=== PATIENT | male | born 1950 | race Caucasian/White ===

== ENCOUNTER → 2019-11-25 09:19 | Outpatient (CLI) | payer BC, SELFPAY ==
--- NOTE | 2019-11-25 09:30 | DI.MRI.S_ITS ---
PROCEDURE: MR SHOULDER RT WO CON INDICATIONS: Pain in right shoulder TECHNIQUE: Noncontrast oblique coronal T2 fast spin echo with fat saturation, oblique sagittal T1 spin echo and T2 fast spin echo with fat saturation, axial T1 spin echo and T2 fast spin echo with fat saturation through the shoulder. COMPARISON: None. FINDINGS: Image quality: Excellent. Rotator cuff: There is a focal full-thickness tear within the mid supraspinatus tendon at the humeral insertion measuring roughly 14 mm anteroposterior. Low-grade partial-thickness articular surface tearing of the anterior, mid, and posterior infraspinatus tendon at the musculotendinous junction. Subscapularis and teres minor tendons are intact. No rotator cuff atrophy. Bones and bursae: No bone marrow contusions or fractures. Moderate acromioclavicular joint degeneration. The acromion demonstrates conventional anatomy, without an os acromiale. No pathologic subacromial-subdeltoid or subcoracoid bursal fluid is present. Capsule and soft tissues: Small paralabral cyst is present posterosuperior Mansi, possibly indicating tearing.. The long head of the biceps tendon demonstrates normal location and morphology. The rotator interval appears normal, without fibrosis. The coracohumeral ligament is normal in thickness. IMPRESSION: 1. Full-thickness tearing of the supraspinatus tendon as described above. 2. Low-grade partial-thickness articular surface tearing of the infraspinatus tendon. 3. Acromioclavicular joint osteoarthritis. 4. Possible posterosuperior glenoid labral tearing. Dictated by: Esther Cooper M.D. on 11/25/2019 at 11:45 Approved by: Esther Cooper M.D. on 11/25/2019 at 11:47
== END ==
PROVIDERS: Referring Provider Physician Assistant Medical; Visit Provider Physician Assistant Medical
DX: M25.511 Pain in right shoulder (principal); M75.121 Complete rotator cuff tear or rupture of right shoulder, not specified as traumatic; M19.011 Primary osteoarthritis, right shoulder
CPT/HCPCS: 73221

== ENCOUNTER 2019-12-29 09:22 | Day surgery (SDC) | payer BC, SELFPAY ==
[2019-12-26 08:35] VITALS: BMI 23.7
[2019-12-29] VITALS (9 sets, daily range): BP systolic 127–158; BP diastolic 73–83; PULSE 56–85; RESP 8–18; TEMP 36.4–36.6; O2SAT 92–98; BMI 22.5
[2019-12-29] MEDS: LACTATED RINGERS 1,000 ML 42 ML IV (11:28)
--- NOTE | 2019-12-29 12:21 | PM.PREOP ---
Pre-operative Note COVID-19 COVID-19 status: Negative Result date/Date tested (Pos, Neg/Pending): 12/26/19 Interval Note History & Physical reviewed/Exam performed by Physician: Yes Changes to H&P: No
[2019-12-29] MEDS: fentaNYL 100 MCG/2 ML INJ 50 MCG IV ×2 (12:35→12:37)
[2019-12-29] MEDS: MIDAZOLAM 2 MG/2 ML VIAL IV (12:36)
[2019-12-29] MEDS: CEFAZOLIN 2 GM/100 ML FROZ.PIGGY IV (12:55)
--- NOTE | 2019-12-29 12:56 | SUR.PREOP ---
Block start time [1335] . Monitoring initiated and maintained throughout procedure. Oxygen and medications given per anesthesiologist instructions. Patient remained stable throughout procedure, no adverse reactions noted. Block end time [1340 ].
--- NOTE | 2019-12-29 12:59 | SUR.PREOP ---
Block start time [1235] . Monitoring initiated and maintained throughout procedure. Oxygen and medications given per anesthesiologist instructions. Patient remained stable throughout procedure, no adverse reactions noted. Block end time [1240].
[2019-12-29] MEDS: BUPIVACAINE 0.5% W/ EPI (PF) 30 ML VIAL INJ (13:34)
--- NOTE | 2019-12-29 13:51 | SUR.OPER ---
Beach chair with Maquet shoulder positioner. Lower body on padded OR bed. Head in foam padded head cradle, secured with straps. Non-operative arm secured <90 degrees abduction. Pillow under knees. Safety belt at thigh. Cloth tape over blanket over lower legs.
[2019-12-29] MEDS: SODIUM CHLORIDE IRRIG SOLUTION 3,000 ML, EPINEPHrine 1 MG IRR (13:54)
--- NOTE | 2019-12-29 14:26 | PM.OP.1 ---
Operative Date/Time/Diagnoses Date of procedure: 12/29/19 Time of procedure: 13:00 Pre-op diagnosis: Right rotator cuff tear Post-op diagnosis: same Procedure & Clinicians Procedure: Right rotator cuff repair with subacromial decompression and debridement of the glenohumeral joint Same procedure as scheduled: Yes Indications: Tear to the rotator cuff Surgeon: Hernan [facility] [employer] Subcontractor: Tricia Capellan Click Yes if Unassisted: No Anesthesia Type: General and Peripheral nerve block Operative Notes Findings: Small full-thickness tear involving the supraspinatus. Little to no retraction. No sign of any significant arthritic changes to the glenohumeral joint. Some mild degenerative changes to the labrum with a type 1 SLAP tear. No sign of any instability or tearing to the biceps tendon or bicipital anchor. No Bankart tear or loose bodies. Closure Type: primary Specimen(s): none sent Applied: implant(s) (Single lateral Arthrex anchor) Estimated Blood Loss (mL): 10 Blood products transfused: none Procedure in detail: On date of service, Patient was met in the holding area. The operative site was signed and witnessed by the OR staff. The surgeries once again discussed with the patient and any remaining questions they had were answered fully. Patient was taken back to the operating theater and placed on the operating table in a supine position. Great care was taken to ensure that all bony prominences were properly padded. Patient was then placed into the beach chair position. The head and neck were properly positioned and secured. A timeout was performed verifying patient's name, procedure, and the operative site. The upper extremity was then prepped and draped in the normal sterile fashion. Previously, the bony anatomy and portal sites were marked out as well as injected with Marcaine with epinephrine. An 11 blade was used to make an incision in the posterior aspect of the shoulder. The camera was placed, and a diagnostic shoulder scope was performed. Findings listed above. Next under direct visualization, a anterior portal was made. Shaver was used to debride the glenohumeral joint particularly the degenerative changes to the labrum. Patient had some high-grade tearing and a small full-thickness tear in the supraspinatus. This was also debrided from the glenohumeral joint. Next the camera was placed into the subacromial space. A lateral portal was obtained under direct visualization. A combination of the shaver and vapor wand, a debridement of the inflamed tissue as well as inflamed bursa was performed. The lateral gutter was also cleaned out. This gave us good visualization of the bursal aspect of the rotator cuff as well as the acromial arch. There was an obvious impingement lesion in the acromial arch. Next we turned our attention to the subacromial decompression. Next, a mechanical rasp was then used to do a subacromial decompression. This allowed us to convert the acromion to a type I acromial. This also allowed us to shave down the bony lesion in the acromial space. The rasp was placed into the lateral portal as well as the anterior portal in order to do a complete subacromial decompression. We next turned our attention to the distal clavicle. Using the shaver in the vapor wand we were able to clean out all the soft tissue around the distal clavicle as well as into the a.c. joint. This gave us good visualization of the arthritic changes to the distal clavicle as well as good of the a.c. joint allowing us to assess our distal clavicle excision. Of the inferior osteophytes coming off the distal clavicle. Using the mechanical rasp in the anterior portal, we were able to remove the inferior osteophytes as well as do a distal clavicle excision. The camera was then placed into the anterior portal which gave us a direct visualization of the a.c. joint allowing us to assess the distal clavicle excision. We then turned our attention to the rotator cuff tear. As mentioned above, patient had a small tear to the supraspinatus. The area of high-grade tearing was completed to a full-thickness tear. Four sutures were placed into the tear in a horizontal mattress fashion. These limbs were then placed into a lateral anchor and tenodesed into the greater tuberosity providing a secure repair of the rotator cuff tear. Shoulder was taken through range of motion no sign of any impingement lesions no sign of any additional tearing. Complications: none Post-operative Condition: stable Disposition: PACU Plan for aftercare: Patient will follow our postoperative protocol for rotator cuff repair
[2019-12-29] MEDS: MEPERIDINE 50 MG/ML INJ 12.5 MG IV (14:52)
== END 2019-12-29 15:55 | disposition home or self-care (01) ==
PROVIDERS: PCP Family Medicine; Referring Provider Orthopaedic Surgery; Visit Provider Orthopaedic Surgery
PROC: (CPT 29827; principal; 2019-12-29 12:15)
DX: S46.011A Strain of muscle(s) and tendon(s) of the rotator cuff of right shoulder, initial encounter (principal); S43.431A Superior glenoid labrum lesion of right shoulder, initial encounter; M75.41 Impingement syndrome of right shoulder; M19.011 Primary osteoarthritis, right shoulder; X50.0XXA Overexertion from strenuous movement or load, initial encounter; E78.5 Hyperlipidemia, unspecified; F17.210 Nicotine dependence, cigarettes, uncomplicated
CPT/HCPCS: 29827; 29826; 29823; 29824; 64450; J0171; J0690; J2175; J2250; J3010

== ENCOUNTER 2023-11-26 07:11 | Day surgery (SDC) | payer MEDICARE, BC, SELFPAY ==
[2023-11-26 07:36] VITALS: BP 144/78; PULSE 69; RESP 16; TEMP 36.3; O2SAT 99
[2023-11-26] MEDS: LACTATED RINGERS 1,000 ML 100 ML IV (07:53)
--- NOTE | 2023-11-26 08:06 | PM.HP.1 ---
History of Present Illness History of Present Illness Date Patient Seen: 11/26/23 Time Patient Seen: 08:06 Chief complaint: Screening Colonoscopy Narrative: Emanuel is a 73-year-old man who presents for a colonoscopy. His last one was over 10 years ago and was normal. He has never had polyps removed. No family history of colon cancer. [facility] Medical History (Updated 11/26/23 @ 08:07 by Levy Angela MD) Tear of right glenoid labrum Arthritis of right acromioclavicular joint Traumatic complete tear of right rotator cuff Impingement syndrome of right shoulder HLD (hyperlipidemia) Social History household members: spouse Smoking Status: Former smoker alcohol intake: current Meds Home Medications and Allergies Home Medications Medication Instructions Recorded Confirmed Type simvastatin 40 mg tablet 20 mg PO DAILY 11/26/23 11/26/23 History Allergies Allergy/AdvReac Type Severity Reaction Status Date / Time No Known Drug Allergies Allergy Verified 11/26/23 07:26 Exam Vital Signs (past 8 hours): - 11/26/23 07:36 Temperature 97.3 F L Pulse Rate 69 Respiratory Rate 16 Blood Pressure 144/78 H Pulse Oximetry 99 Oxygen Delivery Method Room Air Oxygen Delivery Method Room Air Const General: healthy appearing Assessment & Plan Assessment and plan (1) Colon cancer screening: Status: Acute Plan We reviewed the risks and benefits of colonoscopy for colon cancer screening and he would like to proceed. Time-Based Coding :: [TOTAL MINUTES] spent with patient and on the chart (including review of chart, obtaining history, exam, reviewing outside data, placing orders, documenting exam and treatment plan, and counseling patient) on [DATE].
[2023-11-26 08:30] VITALS: BP 95/61; PULSE 70; RESP 14; TEMP 36.4; O2SAT 95
--- NOTE | 2023-11-26 08:33 | PM.OP.COLON ---
Operative Date/Time/Diagnoses Date of procedure: 11/26/23 Time of procedure: 08:33 Pre-op diagnosis: Colon cancer screening Post-op diagnosis: same Procedure & Clinicians Study performed: Colonoscopy Same procedure as scheduled: Yes Surgeon: Levy Angela Procedure Notes Procedure in detail: Surgeon: Levy Angela MD Anesthesia: Radha Ramos CRNA Procedure: The patient was brought to the endoscopy suite, placed in left lateral decubitus position. The patient was connected to monitoring devices. A time-out was performed. Sedation was administered. Once the patient was adequately sedated, a digital rectal exam was performed and was normal. The scope was then inserted and advanced to the cecum where the appendiceal orifice was identified and photographed. The scope was then slowly withdrawn over greater than 6 minutes. The mucosa was thoroughly inspected. No abnormalities were seen. The scope was retroflexed in the rectum. The scope was straightened and removed. The patient was awakened and brought to recovery. Scope withdrawal time: 7 minutes Sedation time: 13 minutes EBL: 0 Findings: Normal colon Post-procedure Disposition: PACU
[2023-11-26 08:35] VITALS: PULSE 65; RESP 13; O2SAT 92
[2023-11-26 08:40] VITALS: BP 101/67; PULSE 84; RESP 12; TEMP 36.3; O2SAT 95
== END 2023-11-26 09:00 | disposition home or self-care (01) ==
PROVIDERS: PCP Family Medicine; Referring Provider Surgery; Visit Provider Surgery
PROC: 0DJD8ZZ Inspection of Lower Intestinal Tract, Via Natural or Artificial Opening Endoscopic (ICD-10-PCS; CPT 45378; principal; 2023-11-26 08:15)
DX: Z12.11 Encounter for screening for malignant neoplasm of colon (principal)
CPT/HCPCS: G0121; J2704